=== PATIENT | female | born 1960 | race Caucasian/White ===

== ENCOUNTER → 2016-10-30 | Outpatient (CLI) | payer OTHER | END | disposition home or self-care (01) | LOC: CFH 06:58 | PROVIDERS: ATTEND Family Medicine | DX: N63 Unspecified lump in breast (principal) | CPT/HCPCS: 76641; G0206 ==

== ENCOUNTER → 2017-02-21 | Outpatient (CLI) | payer OTHER | END | disposition home or self-care (01) | LOC: CFH 07:27 | PROVIDERS: ATTEND Specialist | DX: R16.1 Splenomegaly, not elsewhere classified (principal) | CPT/HCPCS: 76700 ==

== ENCOUNTER → 2018-08-27 | Outpatient (CLI) | payer OTHER | END | disposition home or self-care (01) | LOC: CFH 07:04 | PROVIDERS: ATTEND Internal Medicine Gastroenterology | DX: R16.1 Splenomegaly, not elsewhere classified (principal); B18.2 Chronic viral hepatitis C | CPT/HCPCS: 76700 ==

== ENCOUNTER → 2018-11-19 | Outpatient (CLI) | payer OTHER | END | disposition home or self-care (01) | LOC: CFH 15:34 | PROVIDERS: ATTEND Family Medicine | DX: J34.2 Deviated nasal septum (principal); J01.80 Other acute sinusitis | CPT/HCPCS: 70486 ==

== ENCOUNTER 2020-03-01 09:22 | Outpatient (CLI) | payer OTHER | END 2020-03-01 23:59 | disposition home or self-care (01) | LOC: CFH 09:22 | PROVIDERS: ATTEND Family Medicine | DX: Z12.31 Encounter for screening mammogram for malignant neoplasm of breast (principal) | CPT/HCPCS: 77063; 77067 ==

== ENCOUNTER → 2020-07-27 | Outpatient (CLI) | payer OTHER ==
[~2020-07-27] MED LIST: OMNIPAQUE 350 MG/ML, 100ML BOTTLE ONE
== END | disposition home or self-care (01) ==
LOC: CFH 09:23
PROVIDERS: ATTEND Internal Medicine Gastroenterology
DX: R16.0 Hepatomegaly, not elsewhere classified (principal); K74.69 Other cirrhosis of liver; B18.2 Chronic viral hepatitis C; R77.2 Abnormality of alphafetoprotein; R74.8 Abnormal levels of other serum enzymes; R94.5 Abnormal results of liver function studies; K74.00 Hepatic fibrosis, unspecified
CPT/HCPCS: 74170; Q9967

== ENCOUNTER 2021-01-09 05:51 | Emergency (ER) | payer OTHER ==
[~2021-01-09] VITALS: Ht 160 cm; Wt 79.1 kg
[2021-01-09 05:53] VITALS: BP 156/79
[2021-01-09 06:34] LABS: BASOPHILS % (AUTO) 1 % (0-1); EOSINOPHILS % (AUTO) 4 % (1-7); LYMPHOCYTES % (AUTO) 31 % (22-44); MEAN CORPUSCULAR HEMOGLOBIN 30.9 pg (27.0-34.8); MEAN CORPUSCULAR HGB CONC 35.2 g/dL (32.4-35.8); MEAN PLATELET VOLUME 10.3 fL (7.4-10.4); MONOCYTES % (AUTO) 9 % (2-9); NEUTROPHILS % (AUTO) 56 % (42-75); PLATELET COUNT 119 x10^3/uL (130-400); RED BLOOD COUNT 4.78 x10^6/uL (3.82-5.3); RED CELL DISTRIBUTION WIDTH 13.6 % (9.6-15.2)
[2021-01-09 06:45] LABS: ALANINE AMINOTRANSFERASE 47 U/L (12-78); ALBUMIN 4.2 g/dL (3.4-5.0); ANION GAP 8 mmol/L (5-15); C-REACTIVE PROTEIN, QUANT 0.13 mg/dL (0.02-0.49); CALCIUM 9.3 mg/dL (8.5-10.1); CHLORIDE 109 mmol/L (98-107); CREATININE 0.89 mg/dL (0.55-1.02)
[2021-01-09 06:47] LABS: ALKALINE PHOSPHATASE 91 U/L (45-117); BILIRUBIN,TOTAL 0.7 mg/dL (0.2-1.0); TOTAL PROTEIN 7.8 g/dL (6.4-8.2)
--- NOTE | 2021-01-09 07:02 | NUR ---
report to henok COBURN
[2021-01-09 07:05] LABS: HCT (SEDRATE) 41.9 % (34.6-47.8)
--- NOTE | 2021-01-09 07:20 | NUR ---
[facility] [employer] AT BEDSIDE TO DISCUSS POC. DISCHARGE INSTRUCTIONS REVIEWED
== END 2021-01-09 08:23 | disposition home or self-care (01) ==
LOC: ED 07:15
DX: L03.211 Cellulitis of face (principal); Z86.19 Personal history of other infectious and parasitic diseases
CPT/HCPCS: 36415; 80053; 85025; 85651; 86140; 99283